=== PATIENT | male | born 1990 | race Caucasian/White ===

== ENCOUNTER 2017-05-14 19:14 | Emergency (ER) | payer MEDICAID ==
[~2017-05-14] VITALS: Ht 167.6 cm; Wt 68.2 kg
[~2017-05-14 19:14] MED LIST: ALBU8.5H3 INH; BUDE10.22 INH
[2017-05-14] MEDS: ALBUTEROL/IPRATROPIUM 2.5MG/0.5MG, 3 ML NPPB SCH ×2 (20:19→20:20)
[2017-05-14 20:39] VITALS: BP 128/78
== END 2017-05-14 20:41 | disposition home or self-care (01) ==
LOC: ED 20:05
DX: J45.41 Moderate persistent asthma with (acute) exacerbation (principal)
CPT/HCPCS: 94640; 99283; J7512; J7620

== ENCOUNTER 2017-07-13 08:32 | Emergency (ER) | payer MEDICAID ==
[~2017-07-13] VITALS: Ht 167.6 cm; Wt 73.0 kg
[~2017-07-13 08:32] MED LIST changes: -ALBU8.5H3 INH; +ALBU8.5H8 INH
[2017-07-13] MEDS ORDERED: ALBUTEROL/IPRATROPIUM 2.5MG/0.5MG, 3 ML NPPB ONE (09:00)
[2017-07-13] MEDS ORDERED: ALBUTEROL/IPRATROPIUM 2.5MG/0.5MG, 3 ML ONE (09:01)
[2017-07-13 10:00] VITALS: BP 123/80
== END 2017-07-13 10:04 | disposition home or self-care (01) ==
LOC: ED 09:05
DX: J45.41 Moderate persistent asthma with (acute) exacerbation (principal); F12.10 Cannabis abuse, uncomplicated
CPT/HCPCS: 93005; 94640; 99283; J7620

== ENCOUNTER 2017-08-13 11:50 | Emergency (ER) | payer MEDICAID ==
[~2017-08-13] VITALS: Ht 167.6 cm; Wt 73.3 kg
[2017-08-13 11:56] VITALS: BP 116/80
[2017-08-13 12:44] LABS: HEMATOCRIT 51.9 % (39.2-51.8); HEMOGLOBIN 17.3 g/dL (13.7-18.0); WHITE BLOOD COUNT 8.5 x10^3/uL (3.4-10)
[2017-08-13 12:53] LABS: BLOOD UREA NITROGEN 12 mg/dL (7-18)
[2017-08-13 12:56] LABS: ASPARTATE AMINO TRANSFERASE 35 U/L (15-37)
== END 2017-08-13 14:22 | disposition home or self-care (01) ==
LOC: ED 14:15
DX: R10.32 Left lower quadrant pain (principal); J45.909 Unspecified asthma, uncomplicated
CPT/HCPCS: 36415; 74020; 80053; 81003; 83690; 85025; 99285